=== PATIENT | female | born 1995 | race Caucasian/White ===

== ENCOUNTER 2023-03-10 09:37 | Day surgery (SDC) | payer BC, OTHER ==
[2023-03-08 10:29] VITALS: BMI 29.7
[~2023-03-10 09:37] MED LIST: LACTATED RINGERS 1,000 ML IV SCH
[2023-03-10 10:46] VITALS: RESP 16; TEMP 97.6
[2023-03-10] MEDS ORDERED: LIDOCAINE 1% (10MG/ML) FOR IV START INTRADERMA ONE (11:03)
[2023-03-10] MEDS ORDERED: PROPOFOL 10 MG/ML 20 ML VIAL IV ONE (11:52)
--- NOTE | 2023-03-10 12:19 | P.PCN ---
Date of Procedure: 03/10/23 Procedure(s) Performed: BRIEF HISTORY: Patient is a 27-year-old pleasant white female scheduled for an elective colonoscopy as a part of evaluation of intermittent rectal bleeding for the last several months duration. She has history of chronic constipation and has bowel movements once a week. PROCEDURE PERFORMED: Colonoscopy. PREOPERATIVE DIAGNOSIS: Intermittent rectal bleeding. IV sedation per Anesthesia. PROCEDURE: After informed consent was obtained, the patient, was brought into the endoscopy unit. IV sedation was administered by Anesthesia under continuous monitoring. Digital rectal examination was normal. Initially the Olympus CF-160 flexible video colonoscope was then inserted in the rectum, gradually advanced into the cecum without any difficulty. Careful examination was performed as the scope was gradually being withdrawn. Ileocecal valve and the appendiceal orifice were visualized and appeared normal. Prep was excellent. Mucosa of the cecum, ascending colon, transverse colon, descending colon, sigmoid colon, and rectum appeared normal. Retroflexion was performed in the rectum and small internal hemorrhoids were seen. The patient tolerated the procedure well. IMPRESSION: Normal-appearing colon from rectum to cecum with no emesis of colorectal neoplasia . Small internal hemorrhoids RECOMMENDATIONS: Findings of this examination were discussed with the patient as well as her family. She was advised to be a high-fiber diet, take fiber supplements a regular basis and use osmotic laxatives as needed.
[2023-03-10 12:38] VITALS: BP 115/74; PULSE 74
== END 2023-03-10 13:16 | disposition home or self-care (01) ==
LOC: ORWHC2ENDO 09:37
PROVIDERS: ATTEND Internal Medicine Gastroenterology
DX: K62.5 Hemorrhage of anus and rectum (principal); K64.8 Other hemorrhoids; Z79.899 Other long term (current) drug therapy; Z98.890 Other specified postprocedural states
CPT/HCPCS: 81025; 45378; J2704

== ENCOUNTER 2024-11-06 13:43 | Outpatient (CLI) | payer BC, OTHER ==
[2024-11-06 14:24] LABS: Appearance,Urine Clear (Clear); Bacteria,Urine Occasional /hpf; Bilirubin,Urine Negative (Negative); Blood,Urine Negative (Negative); Color,Urine Yellow; Glucose,Urine (UA) Negative (Negative); Hyaline Casts,Urine 1 /lpf (0-2); Ketones,Urine Negative (Negative); Leukocyte Esterase,Urine Moderate (Negative); Mucus,Urine Occasional /hpf; Nitrite,Urine Negative (Negative); Protein,Urine Trace (Negative); Specific Gravity,Urine 1.017 (1.001-1.035); Squamous Epithelial Cell,Urine 3 /hpf (0-4); Urobilinogen,Urine <2.0 mg/dL (<2.0); WBC,Urine 2 /hpf (0-5)
[2024-11-06 15:13] VITALS: BP 119/73; PULSE 90; RESP 16; TEMP 96.4
--- NOTE | 2024-11-17 11:39 | P.MSEPDOC ---
Presenting Problems - Arrival Data Date of Arrival on Unit: 11/06/24 Time of Arrival on Unit: 13:43 Mode of Transport: Ambulatory - Complaint OB-Reason for Admission/Chief Complaint: Pain Medical History - Information : 4 Para: 1 Number of Living Children: 1 - Gestational Age Gestational Age by WILLI (wks/days): 33 Weeks and 3 Days - History Complications: Prior Review of Systems - Review of Systems Constitutional: No problems Breast: No problems ENT: No problems Cardiovascular: No problems Respiratory: No problems Gastrointestinal: No problems Genitourinary: No problems Musculoskeletal: No problems Neurological: No problems Skin: No problems Vital Signs - Temperature Temperature: 96.4 F Temperature Source: Temporal Artery Scan - Pulse Right Sitting Brachial Pulse Rate: 90 Pulse Assessment Method: Automatic Cuff - Respirations Respiratory Rate: 16 Oxygen Delivery Method: Room Air O2 Sat by Pulse Oximetry: 97 - Blood Pressure Right Arm Sitting Blood Pressure: 119/73 Blood Pressure Mean: 88 Blood Pressure Source: Automatic Cuff Medical Screen Scoring - Cervical Exam Dilation (cm): 0 Effacement (%): 0 Membranes: Intact - Uterine Contractions Frequency From (mins): 1 Frequency To (mins): 6 Duration From (seconds): 20 Duration To (seconds): 60 Intensity: Mild Resting: Soft to palpation - Assessment - Baby A Baseline FHR: 135 Heart Rate - NICHD Category: Category I (Normal) NST: Reactive Physician Notification - Physician Notified Physician Notified Date: 11/06/24 Physician Notified Time: 14:31 Physician: Naveen Rodriguez Order Received: Yes (DC) Maternal Triage Index - Maternal Triage Index Presenting for scheduled procedure w/no complaint: No - Stat/Priority 1 Stat Priority 1: No - Urgent/Priority 2 Urgent Priority 2: No - Prompt/Priority 3 Prompt Priority 3: No - Non-Urgent/Priority 4 Non-Urgent Priority 4: Yes Criteria Met for Priority 4: back pain Disposition - Disposition OB Disposition: Discharge to home Discharge Date: 11/06/24 Discharge Time: 15:00 I agree with the RN Medical Screening Exam: Yes Physician's MSE Comment: I have neither seen nor examined the patient. Case reviewed; plan agreed upon as documented in EMR&OBIX.: Yes Diagnosis: RELATED CONDITIONS, UNSPECIFIED, THIRD TRIMESTER
== END 2024-11-06 15:00 | disposition home or self-care (01) ==
LOC: FBPOP 13:43
PROVIDERS: ATTEND Obstetrics & Gynecology
DX: O26.93 Pregnancy related conditions, unspecified, third trimester (principal); Z91.018 Allergy to other foods; Z3A.33 33 weeks gestation of pregnancy
CPT/HCPCS: 59025; 81001; 99213

== ENCOUNTER 2024-12-01 06:28 | Outpatient (CLI) | payer BC, OTHER ==
[2024-12-01] MEDS: ACETAMINOPHEN IV (For NPO) 1,000 MG in EMPTY BAG 1 BAG IVPB STA (07:24)
[2024-12-01] MEDS: ONDANSETRON 4 MG/2 ML VIAL IVP STA (07:26)
[2024-12-01] MEDS: diphenhydrAMINE 50 MG/ML 1 ML VIAL IVP STA (07:26)
[2024-12-01] MEDS: LACTATED RINGERS 1,000 ML IV ONE (07:26)
[2024-12-01] MEDS: FAMOTIDINE 20 MG/2 ML VIAL IV STA (07:27)
[2024-12-01 11:50] VITALS: BP 120/71; PULSE 98; RESP 16; TEMP 97.2
--- NOTE | 2024-12-05 17:40 | P.MSEPDOC ---
Presenting Problems - Arrival Data Date of Arrival on Unit: 12/01/24 Time of Arrival on Unit: 03:28 Mode of Transport: Ambulatory - Complaint OB-Reason for Admission/Chief Complaint: Pain Comment: 07/02 migraine Medical History - Information : 4 Para: 1 Term: 1 : 0 Abortions: Spontaneous or Elective: 0 Number of Living Children: 1 - Gestational Age Gestational Age by WILLI (wks/days): 36 Weeks and 6 Days Review of Systems - Review of Systems Constitutional: No problems Breast: No problems ENT: No problems Cardiovascular: No problems Respiratory: No problems Gastrointestinal: No problems Genitourinary: No problems Musculoskeletal: No problems Neurological: No problems Skin: No problems Vital Signs - Temperature Temperature: 97.2 F Temperature Source: Temporal Artery Scan - Pulse Right Brachial Pulse Rate: 98 Pulse Assessment Method: Automatic Cuff - Respirations Respiratory Rate: 16 Oxygen Delivery Method: Room Air O2 Sat by Pulse Oximetry: 96 - Blood Pressure Right Arm Blood Pressure: 120/71 Blood Pressure Mean: 87 Blood Pressure Source: Automatic Cuff Medical Screen Scoring - Uterine Contractions Frequency From (mins): 0 Frequency To (mins): 0 - Assessment - Baby A Baseline FHR: 135 Heart Rate - NICHD Category: Category I (Normal) NST: Reactive Physician Notification - Physician Notified Physician Notified Date: 12/01/24 Physician Notified Time: 08:20 Physician: Regina Myers New Order Received: Yes (Discharge with instruction) Maternal Triage Index - Maternal Triage Index Presenting for scheduled procedure w/no complaint: No - Stat/Priority 1 Stat Priority 1: No - Urgent/Priority 2 Urgent Priority 2: Yes Provider Notified: Regina Myers Provider Notified Time: 06:55 Criteria Met for Priority 2: 36.6 migraine Disposition - Disposition OB Disposition: Triage, Discharge to home, Written follow up instructions reviewed Discharge Date: 12/01/24 Discharge Time: 08:27 I agree with the RN Medical Screening Exam: Yes Case reviewed; plan agreed upon as documented in EMR&OBIX.: Yes Diagnosis: HEADACHE, UNSPECIFIED
== END 2024-12-01 08:30 | disposition home or self-care (01) ==
LOC: FBPOP 06:28
PROVIDERS: ATTEND Obstetrics & Gynecology Obstetrics
DX: O26.893 Other specified pregnancy related conditions, third trimester (principal); Z3A.36 36 weeks gestation of pregnancy; Z91.018 Allergy to other foods; Z91.040 Latex allergy status
CPT/HCPCS: 59025; 99214; 96361; 96365; 96375; J1200; J2405; J3490; J0131; 99215

== ENCOUNTER 2024-12-06 07:44 | Outpatient (CLI) | payer BC, OTHER ==
[2024-12-06 09:06] VITALS: BP 124/67; PULSE 103; RESP 17; TEMP 97.3
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
== END 2024-12-06 09:00 | disposition home or self-care (01) ==
LOC: FBPOP 07:44
PROVIDERS: ATTEND Obstetrics & Gynecology Obstetrics
DX: O26.93 Pregnancy related conditions, unspecified, third trimester (principal); Z3A.37 37 weeks gestation of pregnancy; Z91.040 Latex allergy status; Z91.018 Allergy to other foods
CPT/HCPCS: 59025; 99213

== ENCOUNTER 2024-12-12 03:48 | Inpatient (IN) | payer BC, OTHER ==
[2024-12-12] MEDS ORDERED: METHYLERGONOVINE 0.2 MG/ML 1 ML AMP IM PRN (05:13)
[2024-12-12] MEDS ORDERED: miSOPROStoL 200 MCG TAB PO PRN (05:13)
[2024-12-12] MEDS ORDERED: OXYTOCIN 10 UNIT/ML 1 ML VIAL IM PRN (05:13)
[2024-12-12] MEDS ORDERED: CARBOPROST TROMETHAMINE 250 MCG/ML 1 ML AMP IM PRN (05:13)
[2024-12-12] MEDS ORDERED: TRANEXAMIC 1,000 MG/100ML-NACL 1,000 MG in EMPTY BAG 1 BAG IV PRN (05:13)
[2024-12-12] MEDS: CITRIC ACID-SODIUM CITRATE 15 ML CUP PO ONE (05:30)
[2024-12-12 05:38] LABS: Basophils % (A) 0 %; Eosinophils # (A) 0.1 k/uL (0-0.7); Eosinophils % (A) 1 %; HCT 29.8 % (34.0-46.0); Lymphocytes % (A) 25 %; MCH 27.4 pg (25.0-35.0); MCHC 33.6 g/dL (31.0-37.0); MCV 81.6 fL (80.0-100.0); Mean Platelet Volume 8.3; Monocytes # (A) 0.3 k/uL (0-1.0); Monocytes % (A) 4 %; Neutrophils # (A) 5.6 k/uL (1.3-7.7); Neutrophils % (A) 68 %; Platelet Count 200 k/uL (150-450); RBC 3.66 m/uL (3.80-5.40); RDW 14.8 % (11.5-15.5); WBC 8.3 k/uL (3.8-10.6)
[2024-12-12 05:42] LABS: Glucose,Whole Blood 89 mg/dL (70-110)
--- NOTE | 2024-12-12 05:49 | P.HPOB ---
History of Present Illness H&P Date: 12/12/24 Chief Complaint: contractions Ms. Mckeon is a 29 year old at 38 weeks and 4 days with EDC of 12/22/2024 who presents in labor, making cervical change from 3 to 4 centimeters. The patient had a prior section and is scheduled for a repeat section. The has also been complicated by diet-controlled gestational diabetes. She has undergone surveillance for this, which has been reassuring. There is also a maternal history of asthma. The fetus is estimated to be in the 88%ile based on a 36 week growth US. work-up: blood type A positive, antibody screen negative, rubella immune, VDRL non-reactive, HBsAg negative, HIV negative, HCV non-reactive, gonorrhea negative, chlamydia negative, 3 hour GTT abnormal, GBS positive. s/p Tdap. Obstetric history: 1 FTCS, 2 missed abortions with D&C Past Medical History Additional Past Medical History / Comment(s): SEASONAL ALLERGIES. BLOOD IN STOOL FOR PAST 6 MONTHS History of Any Multi-Drug Resistant Organisms: None Reported Past Surgical History: Section Additional Past Surgical History / Comment(s): LAPAROSCOPY. HEMORRHOIDECTOMY. D & C Past Anesthesia/Blood Transfusion Reactions: No Reported Reaction Past Psychological History: No Psychological Hx Reported Smoking Status: Never smoker Past Alcohol Use History: Occasional Additional Past Alcohol Use History / Comment(s): QUIT SMOKING 2017 Past Drug Use History: None Reported - Past Family History Father Family Medical History: Cancer Mother Family Medical History: Cancer Medications and Allergies Home Medications Medication Instructions Recorded Confirmed Type Vit No.179/Iron/Folic 1 tab PO DAILY 12/01/24 12/01/24 History [ Tablet] Allergies Allergy/AdvReac Type Severity Reaction Status Date / Time banana Allergy ITCHY Verified 12/12/24 03:54 THROAT latex Allergy Itching Verified 12/12/24 03:54 Exam Vital Signs Temp Pulse Resp BP Pulse Ox 12/12/24 05:13 97.1 F L 109 H 16 121/75 98 Intake and Output 12/11/24 12/11/24 12/12/24 14:59 22:59 06:59 Other: Weight 86.183 kg Focused physical exam is performed. This is a healthy-appearing in no apparent distress. Breathing is non-labored. Abdomen is gravid and non-tender. Cervical exam is 4 centimeters per OB RN. Extremities non-tender and non- edematous. heart tones are Category I and tocometer is graphing contractions every 2-4 minutes. Results Result Diagrams: 12/12/24 05:15 Abnormal Lab Results - Last 24 Hours (Table) 12/12/24 Range/Units 05:15 RBC 3.66 L (3.80-5.40) m/uL Hgb 10.0 L (11.4-16.0) gm/dL Hct 29.8 L (34.0-46.0) % Assessment and Plan Assessment: 29 year old at 38 weeks and 4 days scheduled for repeat , presenting in labor Plan: Admit, NPO, initiate protocol
[2024-12-12] MEDS ORDERED: SUCCINYLCHOLINE CHLORIDE 200 MG/10 ML VIAL IV ONE (05:55)
[2024-12-12] MEDS ORDERED: ePHEDrine 50 MG/ML 1 ML VIAL ONE (05:55)
[2024-12-12] MEDS ORDERED: MORPHINE SULFATE (PF) 0.3 MG/0.3 ML SYR ONE (05:55)
[2024-12-12] MEDS ORDERED: fentaNYL (PF) 50 MCG/ML 2 ML AMP ONE (05:55)
[2024-12-12] MEDS ORDERED: LIDOCAINE 1% INJ 10MG/ML (20 ML MDV) ONE (05:55)
[2024-12-12] MEDS ORDERED: ONDANSETRON 4 MG/2 ML VIAL ONE (05:55)
[2024-12-12] MEDS ORDERED: NALBUPHINE (ANES) 10 MG/ML - 1 ML AMP ONE (05:55)
[2024-12-12] MEDS ORDERED: PROPOFOL 10 MG/ML 20 ML VIAL IV ONE (05:55)
[2024-12-12] MEDS ORDERED: OXYTOCIN 10 UNIT/ML 1 ML VIAL ONE (05:55)
[2024-12-12] MEDS ORDERED: KETOROLAC 15 MG/ML 1 ML VIAL ONE (05:55)
[2024-12-12] MEDS ORDERED: ZOLPIDEM 5 MG TAB PO PRN (06:58)
[2024-12-12] MEDS ORDERED: ONDANSETRON 4 MG/2 ML VIAL IVP PRN (06:58)
[2024-12-12] MEDS ORDERED: NALOXONE 0.4 MG/ML 1 ML VIAL IV PRN (06:58)
[2024-12-12] MEDS ORDERED: diphenhydrAMINE 25 MG CAP PO PRN (06:58)
[2024-12-12] MEDS ORDERED: METOCLOPRAMIDE 5 MG/ML 2 ML VIAL IVP PRN (06:58)
[2024-12-12] MEDS ORDERED: diphenhydrAMINE 50 MG CAP PO PRN (06:58)
[2024-12-12] MEDS ORDERED: diphenhydrAMINE 50 MG/ML 1 ML VIAL IVP PRN ×2 (06:58)
--- NOTE | 2024-12-12 06:58 | P.OP ---
Date of Procedure: 12/12/24 Preoperative Diagnosis: 1. Term IUP at 38 weeks gestation 2. History of prior section 3. Labor 4. No desire to TOLAC Postoperative Diagnosis: Same Procedure(s) Performed: Repeat Lower Transverse Section Implants: None Anesthesia: christine MARTINEZ Surgeon: Betty Lynne Boat Canvas Maker Installer #1: Regina Myers Estimated Blood Loss (ml): 454 IV fluids (ml): 1,100 Urine output (ml): 100 (clear yellow) Pathology: none sent Condition: stable Disposition: floor Indications for Procedure: Ms. Mckeon is a 29 year old at 38 weeks and 4 days gestation who was scheduled for a repeat section but showed up in labor this evening. The risks, benefits, and alternatives to section were discussed with the patient including risk of bleeding, infection, damage to surrounding structures including bladder/bowels/ureters, and post-operative VTE. The patient understands these risks and desires to proceed with section. Operative Findings: Viable female infant. Apgars 7/8. Weight 8 pounds and 0 ounces (3620 grams). Normal uterus, bilateral fallopian tubes, and ovaries. Moderate adhesive disease. Description of Procedure: The patient was taken back to the operating room where spinal anesthesia was found to be inadequate. General anesthesia was established. Two grams of Ancef were given for infection prophylaxis. She was prepared and draped in the dorsal supine position with a leftward tilt. A Pfannenstiel skin incision was made with the scalpel. The incision was carried down to the fascia with a bovie. The fascia was incised and extended laterally with Nina scissors. The superior aspect of the fascia was grasped with the Hemal clamps. The underlying rectus muscle was dissected off sharply with Nina scissors. In a similar fashion, the inferior aspect of the fascia was elevated with Hemal clamps and the rectus muscle and pyramidalis were dissected off. Excellent hemostasis was achieved with the bovie. The rectus muscle was in the midline down to the level of the pubic symphysis. Pre-peritoneal fatty tissue was bluntly dissected to expose the peritoneum. The peritoneum was found to be free of adherent bowel and entered sharply with Nina scissors. The peritoneal incision was extended superiorly and inferiorly to the bladder reflection with good visualization of the bladder. The bladder blade was inserted and vesicouterine peritoneum was identified. Intraabdominal survey revealed scant, clear peritoneal fluid and the thinned-out lower uterine segment. The vesicouterine peritoneum was opened with scissors and the bladder flap was developed. The bladder blade was repositioned to keep the bladder out of the operative field. The lower uterine segment was incised with a scalpel. The amniotic sac was ruptured with an Allis clamp and clear fluid was noted. The uterine incision was extended bluntly with lateral and upward traction. The fetus was in cephalic presentation. The head was elevated out of the pelvis with special attention paid to avoid using the uterine incision as a fulcrum. Gentle fundal pressure was applied once the head was brought into the incision. The was delivered with no difficulty and was noted to be crying spontaneously. The mouth and nose were suctioned with a bulb. The cord was clamped and cut. The was handed off to the pipeline gang supervisor. IV oxytocin was initiated to facilitate uterine contractions. The placenta was delivered intact with manual massage of uterine fundus. The uterus was then exteriorized and the inside of the uterus was gently wiped with a lap sponge to assure complete removal of placental membranes. The uterine incision was closed with 0-Vicryl suture in a running locked fashion. A second imbr icating layer was placed with 0-Vicryl. The ovaries and tubes were found to be normal. The uterus, tubes, and ovaries were then gently returned to the abdominal cavity. The abdomen was copiously suction irrigated. The uterine incision was reinspected and excellent hemostasis was noted. The fascial layer was closed with a 0-Vicryl suture. The subcutaneous tissue was reapproximated with 2-0 Plain Gut. The skin was closed with 4-0 Monocryl in a subcuticular fashion.The patient tolerated the procedure well. All the counts were correct times two. The patient was taken to the recovery room in a stable condition. A physician salesperson surgical appliances was utilized for the entire procedure due to the need for tissue retraction, dissection of vital structures, prevention and management of blood loss, and reduction in overall operative and anesthesia time as is the standard of care.
[2024-12-12] MEDS: ACETAMINOPHEN IV (For NPO) 1,000 MG in EMPTY BAG 1 BAG IVPB ONE (07:15)
[2024-12-12] MEDS: LACTATED RINGERS 1,000 ML IV SCH (09:23)
[2024-12-12] MEDS: KETOROLAC 15 MG/ML 1 ML VIAL IVP SCH (09:25)
[2024-12-12] MEDS: SENNOSIDES-DOCUSATE SODIUM 1 EACH TAB PO SCH (09:26)
[2024-12-12] MEDS ORDERED: ACETAMINOPHEN TAB 500 MG TAB PO SCH (16:00)
[2024-12-12] MEDS: ACETAMINOPHEN TAB 500 MG TAB PO SCH (17:40)
[2024-12-13] MEDS: IBUPROFEN 800 MG TAB PO SCH (04:40)
[2024-12-13 05:11] LABS: Basophils % (A) 0 %; Eosinophils # (A) 0.1 k/uL (0-0.7); Eosinophils % (A) 1 %; HCT 25.5 % (34.0-46.0); HGB 8.6 gm/dL (11.4-16.0); Hypochromasia Slight; Lymphocytes # (A) 2.3 k/uL (1.0-4.8); Lymphocytes % (A) 22 %; MCH 27.9 pg (25.0-35.0); MCHC 33.7 g/dL (31.0-37.0); MCV 82.6 fL (80.0-100.0); Mean Platelet Volume 8.1; Monocytes # (A) 0.4 k/uL (0-1.0); Monocytes % (A) 4 %; Neutrophils # (A) 7.2 k/uL (1.3-7.7); Neutrophils % (A) 71 %; Platelet Count 202 k/uL (150-450); RBC 3.08 m/uL (3.80-5.40); WBC 10.2 k/uL (3.8-10.6)
--- NOTE | 2024-12-13 09:05 | P.PNOBGPC ---
Subjective - Subjective Principal diagnosis: s/p primary section Interval history: The patient is doing well this morning and had no acute events overnight. She has no complaints this morning. She reports minimal lochia, passing flatus, voiding without difficulty, ambulating, and eating/drinking without nausea or vomiting. She is formula her without difficulty. She denies chest pain, shortness of breathing, fevers, or chills overnight. She denies pain or swelling in the legs. Patient reports: Reports appetite normal, Reports voiding normally, Reports pain well controlled, Reports ambulating normally [place]: doing well Objective - Vital Signs Latest vital signs: Vital Signs Temp Pulse Pulse Resp BP BP Pulse Ox 12/13/24 08:23 97.7 F 76 16 107/70 98 12/13/24 00:00 97.9 F 83 16 114/80 100 12/12/24 20:56 97.9 F 77 18 117/82 12/12/24 15:45 98.0 F 79 18 116/76 99 12/12/24 12:00 98.1 F 91 16 117/76 100 12/12/24 09:00 95 16 129/72 100 Intake and Output 12/12/24 12/13/24 12/13/24 22:59 06:59 14:59 Output Total 1600 Balance -1600 Output: Urine 1600 Other: # Voids 2 - Exam Extremities: Present: normal Abdomen: Present: normal appearance, soft Incision: Present: normal, dry, intact (76) Uterus: Present: normal, firm - Labs Labs: Abnormal Lab Results - Last 24 Hours (Table) 12/13/24 Range/Units 04:20 RBC 3.08 L (3.80-5.40) m/uL Hgb 8.6 L (11.4-16.0) gm/dL Hct 25.5 L (34.0-46.0) % Assessment and Plan Assessment: 29 year old now POD#1 s/p repeat section Plan: 1. Postoperative. Meeting all milestones appropriately. 2. Viable female . Doing well at bedside. Dispo: Anticipate discharge home tomorrow.
--- NOTE | 2024-12-13 10:57 | P.PN ---
Progress Note - Text 12/13/24 1015am 59-year-old female status post , she received spinal Duramorph and also had a general anesthetic. Patient seen and evaluated for postop pain control, patient was not happy with the pain relief she stated that her VAS was 9 out of 10 with complaints of nausea vomiting. She is doing better with nausea today but her pain is still at 10. At this point the spinal Duramorph has worn off and she needs oral or IV meds from her primary surgeon
--- NOTE | 2024-12-14 08:21 | P.DS ---
Providers Date of admission: 12/12/24 05:04 Expected date of discharge: 12/14/24 Attending physician: Naveen Rodriguez Primary care physician: Stated None Hospital Course: 29 year old now POD#2 s/p repeat section at 38 weeks due to labor. The patient is doing well this morning and had no acute events overnight. She has no complaints this morning. She reports minimal lochia, passing flatus, voiding without difficulty, ambulating, and eating/drinking without nausea or vomiting. doing well at bedsdc. She denies chest pain, shortness of breathing, fevers, or chills overnight. She denies pain or swelling in the legs. Postoperative restrictions are reviewed with the patient including pelvic rest for 6 weeks, no lifting heavier than 15 pounds for 6 weeks. The patient is encouraged to call the office if she experiences any heavy bleeding, foul-smelling discharge, breast complaints, or any if she has any other concerns. She will follow up in the office with Dr. Rodriguez in 2 weeks for postoperative exam. She will go home with Motrin and Tylenol as well as a 3-day supply of oxycodone. All questions are answered. Patient Condition at Discharge: Good Plan - Discharge Summary New Discharge Prescriptions: New Docusate [Colace] 100 mg PO BID PRN #60 capsule PRN Reason: Constipation oxyCODONE HCL [Roxicodone] 5 mg PO Q6HR PRN 3 Days #12 tab PRN Reason: Breakthrough Pain Ibuprofen [Motrin] 600 mg PO Q6HR PRN #30 tab PRN Reason: Mild Pain (Scale 1 To 3) Acetaminophen Tab [Tylenol] 650 mg PO Q6H PRN #30 tab PRN Reason: Mild Pain (Scale 1 To 3) No Action Vit No.179/Iron/Folic [ Tablet] 1 tab PO DAILY Discharge Medication List Vit No.179/Iron/Folic [ Tablet] 1 tab PO DAILY 12/01/24 [History] Acetaminophen Tab [Tylenol] 650 mg PO Q6H PRN #30 tab 12/14/24 [Rx] Docusate [Colace] 100 mg PO BID PRN #60 capsule 12/14/24 [Rx] Ibuprofen [Motrin] 600 mg PO Q6HR PRN #30 tab 12/14/24 [Rx] oxyCODONE HCL [Roxicodone] 5 mg PO Q6HR PRN 3 Days #12 tab 12/14/24 [Rx] Follow up Appointment(s)/Referral(s): Naveen Rodriguez MD [STAFF PHYSICIAN] - 01/23/25 1:45 pm (Post C/S Appointment 12-30-2024 at 1:15pm) Activity/Diet/Wound Care/Special Instructions: Instructions 1. Do not begin any exercise program for 3 weeks. 2. Do not resume sexual relations for 6 weeks or longer if uncomfortable. 3. You may take tub baths or showers at any time. 4. You may use tampons if desired after 6 weeks. 5. Keep any areas repaired with stitches clean and dry. 6. If you are not nursing, wear a good fitting, supportive bra during the day and limit fluid intake for at least 1 week to prevent breast engorgement. 7. Call the office, , within the next week to make appointment for your 6 week checkup if it has not already been made. 8. Report any of the following occurrences to the doctor promptly: a. Heavy, excessive bleeding b. Chills, fever c. Burning or frequency of urination d. Pain or redness and breasts if nursing e. Increasing pain or swelling of vulva (stitches). In addition to the above instructions, the following additional should be followed: 1. No heavy lifting or straining (exercising) until after 6 week checkup. 2. Keep abdominal incision clean and dry: You may wear a dressing if more comfortable. 3. Make office appointment for 2 weeks after delivery date. Discharge Disposition: HOME SELF-CARE
[2024-12-15 08:23] VITALS: BP 114/78; PULSE 87; RESP 16; TEMP 97.4
== END 2024-12-15 11:50 | disposition home or self-care (01) | DRG 788 ==
LOC: FBPOP 03:48 → 4FBP 05:04
PROVIDERS: ADMIT Obstetrics & Gynecology; ATTEND Obstetrics & Gynecology
PROC: 10D00Z1 Extraction of Products of Conception, Low, Open Approach (ICD-10-PCS; principal; 2024-12-12 06:00)
DX: O34.211 Maternal care for low transverse scar from previous cesarean delivery (principal); G89.18 Other acute postprocedural pain; O24.420 Gestational diabetes mellitus in childbirth, diet controlled; O99.52 Diseases of the respiratory system complicating childbirth; O99.824 Streptococcus B carrier state complicating childbirth; J45.909 Unspecified asthma, uncomplicated; Z37.0 Single live birth; Z87.891 Personal history of nicotine dependence; Z91.040 Latex allergy status; Z3A.38 38 weeks gestation of pregnancy
CPT/HCPCS: 59025; 85025; 86850; 86900; 86901; 99213